=== PATIENT | female | born 1960 | race Caucasian/White ===

== ENCOUNTER → 2017-04-23 | Outpatient (CLI) | payer OTHER | LOC: FIMAGING 14:07 | PROVIDERS: ATTEND Internal Medicine | DX: Z12.31 Encounter for screening mammogram for malignant neoplasm of breast (principal) | CPT/HCPCS: G0202 ==

== ENCOUNTER 2017-12-20 16:10 | Emergency (ER) | payer OTHER ==
--- NOTE | 2017-12-20 16:34 | CPEKG ---
Heart Rate: 73 RR Interval: 822 P-R Interval: 144 QRSD Interval: 78 QT Interval: 380 QTC Interval: 419 P [place]: 61 QRS [place]: 55 T Wave [place]: 38 EKG Severity - NORMAL ECG - EKG Impression: SINUS RHYTHM EKG Impression: Unchanged from previous Electronically Signed By: Jone Tran 20-Dec-2017 16:40:04
[2017-12-20] MEDS ORDERED: ASPIRIN 81 MG CHEWABLE TAB PO ONE (16:36)
--- NOTE | 2017-12-20 16:39 | EDPHY ---
H & P Time Seen by Provider: 12/20/17 16:26 HPI/ROS: CHIEF COMPLAINT: Chest pain HISTORY OF PRESENT ILLNESS: Patient is a 57-year-old female no known cardiac or pulmonary disease who presents to the emergency department complaining of a burning/pressure sensation to her left chest that radiates to her arm and shoulder blade. Is worse with deep inspiration. She has had the symptoms continuously since last night after the football game. She thought that maybe she pulled a muscle from working out a was yelling to heart during the football game. She denies nausea vomiting. No diaphoresis. No headache or lightheadedness. She states that she had an echo after passing out 1 year ago that was normal. She denies shortness of breath. No recent fevers or infections. REVIEW OF SYSTEMS: Constitutional: denies: chills, fever, recent illness, recent injury EENTM: denies: blurred vision, double vision, nose congestion Respiratory: denies: cough, shortness of breath Cardiac: See HPI Gastrointestinal/Abdominal: denies: abdominal pain, diarrhea, nausea, vomiting, blood streaked stools Genitourinary: denies: dysuria, frequency, hematuria, pain Musculoskeletal: denies: joint pain, muscle pain Skin: denies: lesions, rash, jaundice, bruising Neurological: denies: headache, numbness, paresthesia, tingling, dizziness, weakness Hematologic/Lymphatic: denies: blood clots, easy bleeding, easy bruising Immunologic/allergic: denies: HIV/AIDS, transplant EXAM: GENERAL: Well-appearing, well-nourished and in no acute distress. HEAD: Atraumatic, normocephalic. EYES: Pupils equal round and reactive to light, extraocular movements intact, sclera anicteric, conjunctiva are normal. ENT: TMs normal, nares patent, oropharynx clear without exudates. Moist mucous membranes. NECK: Normal range of motion, supple without lymphadenopathy or JVD. LUNGS: Breath sounds clear to auscultation bilaterally and equal. No wheezes rales or rhonchi. HEART: Regular rate and rhythm without murmurs, rubs or gallops. ABDOMEN: Soft, nontender, normoactive bowel sounds. No guarding, no rebound. No masses appreciated. BACK: No CVA tenderness, no spinal tenderness, step-offs or deformities EXTREMITIES: Normal range of motion, no pitting or edema. No clubbing or cyanosis. NEUROLOGICAL: Cranial nerves II through XII grossly intact. Normal speech, normal gait. 5/5 strength, normal movement in all extremities, normal sensation PSYCH: Normal mood, normal affect. SKIN: Warm, dry, normal turgor, no visible rashes or lesions. Source: Patient Exam Limitations: No limitations - Medical/Surgical History Hx Asthma: No Hx Chronic Respiratory Disease: No Hx Diabetes: No Hx Cardiac Disease: No Hx Renal Disease: No Hx Cirrhosis: No Hx Alcoholism: No Other PMH: migraines -neurologist - Family History Significant Family History: No pertinent family hx - Social History Alcohol Use: Sober Drug Use: None Constitutional: Initial Vital Signs Temperature (C) 36.5 C 12/20/17 16:36 Heart Rate 78 12/20/17 16:36 Respiratory Rate 18 12/20/17 16:36 Blood Pressure 130/77 H 12/20/17 16:36 O2 Sat (%) 97 12/20/17 16:36 O2 Delivery Mode Room Air Allergies/Adverse Reactions: erythromycin base [Erythromycin Base] Allergy (Verified 12/20/17 16:33) venom-honey bee [bee venom (honey bee)] Allergy (Verified 12/20/17 16:33) Home Medications: Medication Instructions Recorded Herbals/Supplements -Info Only 1 each PO AD 06/23/13 [place] 12/20/17 Medical Decision Making - Diagnostics EKG Interpretation: An EKG obtained and was read and documented in trace view. Please see trace view for full reading and report. Sinus rhythm, no acute ischemic changes or arrhythmias Imaging Results: Imaging Impressions Chest X-Ray 12/20/17 16:36 Impression: Normal. No source for chest pain identified. Imaging: I viewed and interpreted images myself ED Course/Re-evaluation: 5:40 p.m. the patient's lab work and x-ray are reassuring. She is currently asymptomatic. I offered admission versus outpatient follow-up for stress testing. She would prefer outpatient. She thinks that she may have strained a muscle exercising. I gave her strict return precautions. Differential Diagnosis: Partial list of the Differential diagnosis considered include but were not limited to; chest pain, GERD, spasm, pleurisy and although unlikely based on the history and physical exam, I also considered PE, acute coronary disease, dissection, aneurysm. I discussed these differential diagnoses and the plan with the patient as well as the usual and expected course. The patient understands that the diagnosis is provisional and that in medicine we are not always correct and that further workup is often warranted. Usual and customary warnings were given. All of the patient's questions were answered. The patient was instructed to return to the emergency department should the symptoms at all worsen or return, otherwise to followup with the physician as we discussed. - Data Points Laboratory Results: Laboratory Results 12/20/17 16:45 12/20/17 16:45 12/20/17 12/20/17 12/20/17 16:45 16:45 16:45 WBC 5.46 10^3/uL 10^3/uL (3.80-9.50) RBC 4.21 10^6/uL 10^6/uL (4.18-5.33) Hgb 13.3 g/dL g/dL (12.6-16.3) Hct 38.8 % % (38.0-47.0) MCV 92.2 fL fL (81.5-99.8) MCH 31.6 pg pg (27.9-34.1) MCHC 34.3 g/dL g/dL (32.4-36.7) RDW 12.0 % % (11.5-15.2) Plt Count 254 10^3/uL 10^3/uL (150-400) MPV 9.5 fL fL (8.7-11.7) Neut % (Auto) 46.7 % % (39.3-74.2) Lymph % (Auto) 37.9 % % (15.0-45.0) [place] % (Auto) 11.0 % % (4.5-13.0) Eos % (Auto) 3.5 % % (0.6-7.6) Baso % (Auto) 0.7 % % (0.3-1.7) Nucleat RBC Rel Count 0.0 % % (0.0-0.2) Absolute Neuts (auto) 2.55 10^3/uL 10^3/uL (1.70-6.50) Absolute Lymphs (auto) 2.07 10^3/uL 10^3/uL (1.00-3.00) Absolute Monos (auto) 0.60 10^3/uL 10^3/uL (0.30-0.80) Absolute Eos (auto) 0.19 10^3/uL 10^3/uL (0.03-0.40) Absolute Basos (auto) 0.04 10^3/uL 10^3/uL (0.02-0.10) Absolute Nucleated RBC 0.00 10^3/uL 10^3/uL (0-0.01) Immature Gran % 0.2 % % (0.0-1.1) Immature Gran # 0.01 10^3/uL 10^3/uL (0.00-0.10) PT 12.4 SEC SEC (12.0-15.0) INR 0.93 (0.83-1.16) APTT 24.4 SEC SEC (23.0-38.0) D-Dimer 0.37 ug/mLFEU ug/mLFEU (0.00-0.50) Sodium 140 mEq/L mEq/L (135-145) Potassium 4.4 mEq/L mEq/L (3.5-5.2) Chloride 99 mEq/L mEq/L (97-110) Carbon Dioxide 26 mEq/l mEq/l (22-31) Anion Gap 15 mEq/L mEq/L (8-16) BUN 20 mg/dL mg/dL (7-23) Creatinine 0.8 mg/dL mg/dL (0.6-1.0) Estimated GFR > 60 Glucose 93 mg/dL mg/dL (70-100) Calcium 9.4 mg/dL mg/dL (8.5-10.4) Total Bilirubin 0.5 mg/dL mg/dL (0.1-1.4) Conjugated Bilirubin 0.1 mg/dL mg/dL (0.0-0.5) Unconjugated Bilirubin 0.4 mg/dL mg/dL (0.0-1.1) AST 40 IU/L IU/L (14-46) ALT 45 IU/L IU/L (9-52) Alkaline Phosphatase 84 IU/L IU/L (38-126) Troponin I < 0.012 ng/mL ng/mL (0.000-0.034) Total Protein 7.2 g/dL g/dL (6.3-8.2) Albumin 4.1 g/dL g/dL (3.5-5.0) Lipase 124 IU/L IU/L (23-300) Medications Given: Discontinued Medications Aspirin (Aspirin) 324 mg PO EDNOW ONE Stop: 12/20/17 16:37 Last Admin: 12/20/17 16:47 Dose: 324 mg Departure - Departure Disposition: Home, Routine, Self-Care Clinical Impression: Chest pain Qualifiers: Chest pain type: other chest pain Qualified Code(s): R07.89 - Other chest pain ; R07.8 - Other chest pain Condition: Fair Instructions: Chest Pain (ED) Additional Instructions: Follow-up for cardiac stress test within 72 hr. Referrals: Matthias Chapa MD [Primary Care Provider] - 1-2 days without fail Nishant Ohara MD [Medical Doctor] - As per Instructions
[2017-12-20 16:43] VITALS: TEMP 97.7
[2017-12-20 16:54] LABS: PLATELET COUNT 254 10^3/uL (150-400)
[2017-12-20 17:19] LABS: INR 0.93 (0.83-1.16); PROTIME(PATIENT) 12.4 SEC (12.0-15.0)
[2017-12-20 18:02] VITALS: BP 126/76; PULSE 71; RESP 16; O2SAT 96
== END 2017-12-20 17:50 | disposition home or self-care (01) ==
LOC: CED 16:10
DX: R07.89 Other chest pain (principal)
CPT/HCPCS: 71046-PO; 80048-PO; 80076-PO; 83690-PO; 84484-PO; 85025-PO; 85378-PO; 85610-PO; 85730-PO

== ENCOUNTER → 2018-03-21 | Outpatient (CLI) | payer OTHER ==
[~2018-03-21] MED LIST: GADOBUTROL 10 ML VIAL IVP ONE
== END ==
LOC: FIMAGING 09:04 → EEVIPCON 09:04
PROVIDERS: ATTEND Internal Medicine
DX: R26.89 Other abnormalities of gait and mobility (principal); R27.9 Unspecified lack of coordination; R53.83 Other fatigue
CPT/HCPCS: A9585

== ENCOUNTER → 2018-05-06 | Outpatient (CLI) | payer OTHER | LOC: FIMAGING 15:18 | PROVIDERS: ATTEND Internal Medicine | DX: Z12.31 Encounter for screening mammogram for malignant neoplasm of breast (principal) ==